=== PATIENT | female | born 1985 ===

== ENCOUNTER 2024-03-08 10:31 | Outpatient (CLI) | payer OTHER ==
--- NOTE | 2024-03-08 16:21 | Ultrasound Report ---
PROCEDURE: Soft Tissue Head or Neck INDICATIONS: NECK PAIN SWELLING TECHNIQUE: Real-time scanning was performed of the neck, with image documentation. COMPARISON: None FINDINGS: Targeted ultrasound of the neck demonstrates normal appearing cervical chain lymph nodes. T hese maintain a normal reniform shape and fatty hilum. IMPRESSION: Targeted ultrasound of the neck demonstrates normal-appearing, non enlarged cervical francine in lymph nodes. Reviewed by: Edouard Bales MD on 03/08/2024 4:20 PM PDT Approved by: Edouard Bales MD on 03/08/2024 4:20 PM PDT Station ID: [id number]
== END 2024-03-08 10:32 | disposition home or self-care (01) ==
LOC: DI 10:31
PROVIDERS: ATTEND Nurse Practitioner Family
DX: M54.2 Cervicalgia (principal); R22.1 Localized swelling, mass and lump, neck